=== PATIENT | male | born 1995 | race Caucasian/White ===

== ENCOUNTER 2018-04-07 23:01 | Emergency (ER) | payer OTHER ==
[2018-04-07 23:41] LABS: URINE APPEARANCE CLEAR; URINE BILIRUBIN NEGATIVE (NEGATIVE); URINE BLOOD NEGATIVE (NEGATIVE); URINE COLOR YELLOW; URINE GLUCOSE (UA) NEGATIVE (NEGATIVE); URINE KETONE NEGATIVE (NEGATIVE); URINE LEUKOCYTE ESTERASE NEGATIVE (NEGATIVE); URINE NITRITE NEGATIVE (NEGATIVE); URINE PROTEIN NEGATIVE (NEGATIVE); URINE UROBILINOGEN 0.2 E.U./dL (0.20 - 1.00)
[2018-04-07 23:43] LABS: BASO % 0.1 % (0-6); EOS % 1.8 % (0-6); GRAN % 54.6 % (47-80); HEMATOCRIT 45.2 % (42.0-52.0); HEMOGLOBIN 15.4 gm/dl (14.0-18.0); LYMPH % 35.5 % (16-45); MEAN CELL VOLUME 88.1 fl (81-97); MEAN CORPUSCULAR HGB CONC 34.1 g/dl (32-36); PLATELET COUNT 284 K/uL (130-400); RED BLOOD COUNT 5.13 M/uL (4.40-5.70); WHITE BLOOD COUNT W/O DIFF 7.2 K/uL (4.2-12.2)
[2018-04-07 23:51] LABS: BLOOD UREA NITROGEN 14 mg/dL (6-20); EST GLOMERULAR FILTRATION RATE > 60 mL/min
[2018-04-07 23:54] LABS: GLUCOSE,RANDOM 83 mg/dL (74-109)
--- NOTE | 2018-04-08 00:33 | Emergency Department Record ---
History of Present Illness - General Chief Complaint: Abdominal Pain Stated Complaint: ABDOMINAL PAIN Time Seen by Provider: 04/07/18 23:27 Source: Patient Mode of Arrival: Ambulatory Limitations: No limitations - History of Present Illness Initial Comments: pt has been having lower abd pain for a week. he has dysuria at times MD Complaint: Abdominal pain Onset/Timin -: Days(s) Location: Suprapubic, LLQ, RLQ Radiation: Other Migration to: No migration Severity: Moderate Severity scale (1-10): 7 Quality: Burning, Sharp Consistency: Constant, Intermittent Improves With: Nothing Worsens With: Medication, Other Associated Symptoms: Nausea - Related Data Home Medications Medication Instructions Recorded Confirmed Last Taken No Home Med [NO HOME MEDS] 04/07/18 04/07/18 Unknown Allergies Allergy/AdvReac Type Severity Reaction Status Date / Time No Known Drug Allergies Allergy Verified 04/07/18 23:21 Travel Screening - Travel/Exposure Within Last 30 Days Have you traveled within the last 30 days?: No - Travel/Exposure Within Last Year Have you traveled outside the [place] in the last year?: No - Additonal Travel Details Have you been exposed to anyone with a communicable illness?: No - Travel Symptoms Symptom Screening: None Review of Systems Reviewed: No additional complaints except as noted below Constitutional: Reports: As per HPI. Denies: Chills, Fever, Malaise, Night sweats, Weakness, Weight change Eyes: Reports: As per HPI. Denies: Eye discharge, Eye pain, Photophobia, Vision change ENT: Reports: As per HPI. Denies: Congestion, Dental pain, Ear pain, Epistaxis , Hearing loss, Throat pain Respiratory: Reports: As per HPI. Denies: Cough, Dyspnea, Hemoptysis, Stridor, Wheezes Cardiovascular: Reports: As per HPI. Denies: Arrhythmia, Chest pain, Dyspnea on exertion, Edema, Murmurs, Orthopnea, Palpitations, Paroxysmal nocturnal dyspnea, Rheumatic Fever, Syncope Endocrine: Reports: As per HPI. Denies: Fatigue, Heat or cold intolerance, Polydipsia, Polyuria Gastrointestinal: Reports: As per HPI. Denies: Abdominal pain, Constipation, Diarrhea, Hematemesis, Hematochezia, Melena, Nausea, Vomiting Genitourinary: Reports: As per HPI. Denies: Dysuria, Frequency, Hematuria, Incontinence, Retention, Testicular pain, Testicular mass, Urgency Musculoskeletal: Reports: As per HPI. Denies: Arthralgia, Back pain, Gout, Joint swelling, Myalgia, Neck pain Skin: Reports: As per HPI. Denies: Bruising, Change in color, Change in hair/ nails, Lesions, Pruritus, Rash Neurological: Reports: As per HPI. Denies: Abnormal gait, Confusion, Headache, Numbness, Paresthesias, Seizure, Tingling, Tremors, Vertigo, Weakness Psychiatric: Reports: As per HPI. Denies: Anxiety, Auditory hallucinations, Depression, Homicidal thoughts, Suicidal thoughts, Visual hallucinations Hematological/Lymphatic: Reports: As per HPI. Denies: Anemia, Blood Clots, Easy bleeding, Easy bruising, Swollen glands Past Medical History - SOCIAL HISTORY Smoking Status: Never smoker Alcohol Use: Occasional Drug Use: Heavy Drug Use Detail:: Marijuana - RESPIRATORY Hx Respiratory Disorders: No - CARDIOVASCULAR Hx Cardio Disorders: No - NEURO Hx Neuro Disorders: No - GI Hx GI Disorders: No - Hx Genitourinary Disorders: No - ENDOCRINE Hx Endocrine Disorders: No - MUSCULOSKELETAL Hx Musculoskeletal Disorders: No - PSYCH Hx Psych Problems: No - HEMATOLOGY/ONCOLOGY Hx Hematology/Oncology Disorders: No Family Medical History Any Significant Family History?: No Physical Exam - General General Appearance: Alert, Oriented x3, Cooperative, Mild distress - Head Head exam: Normal inspection - Eye Eye exam: Normal appearance, PERRL, EOMI Pupils: Normal accommodation - ENT ENT exam: Normal exam, Mucous membranes moist, Normal external ear exam, Normal orophraynx Ear exam: Normal external inspection. negative: External canal tenderness Nasal Exam: Normal inspection. negative: Discharge, Sinus tenderness Mouth exam: Normal external inspection, Tongue normal Teeth exam: Normal inspection. negative: Dental caries Throat exam: Normal inspection. negative: Tonsillar erythema, Tonsillar exudate - Neck Neck exam: Normal inspection, Full ROM. negative: Tenderness - Respiratory Respiratory exam: Normal lung sounds bilaterally. negative: Respiratory distress - Cardiovascular Cardiovascular Exam: Regular rate, Normal rhythm, Normal heart sounds - GI/Abdominal GI/Abdominal exam: Soft, Normal bowel sounds, Tenderness - Rectal Rectal exam: Deferred - exam: Circumcision, Normal inspection. negative: Testicular tenderness, Urethral discharge - Extremities Extremities exam: Normal inspection, Full ROM, Normal capillary refill. negative: Tenderness - Back Back exam: Reports: Normal inspection, Full ROM. Denies: Muscle spasm, Rash noted, Tenderness - Neurological Neurological exam: Alert, CN II-XII intact, Normal gait, Oriented X3 - Psychiatric Psychiatric exam: Normal affect, Normal mood - Skin Skin exam: Dry, Intact, Normal color, Warm Course Vital Signs 04/07/18 23:16 Temperature 98 F Pulse Rate [ 62 Pulse Ox Probe] Respiratory 16 Rate Blood Pressure 145/81 [Left Arm] Pulse Ox 97 - Reevaluation(s) Reevaluation #1: 04/08/18 01:31 pt feels better Medical Decision Making - Lab Data Result diagrams: 04/07/18 23:00 04/07/18 23:00 Lab Results 04/07/18 04/07/18 04/07/18 Range/Units 23:00 23:00 23:33 WBC 7.2 (4.2-12.2) K/uL RBC 5.13 (4.40-5.70) M/uL Hgb 15.4 (14.0-18.0) gm/dl Hct 45.2 (42.0-52.0) % MCV 88.1 (81-97) fl MCH 30.0 (27-33) pg MCHC 34.1 (32-36) g/dl RDW 12.0 (11.5-14.5) % Plt Count 284 (130-400) K/uL MPV 9.0 (7.4-10.4) fl Gran % 54.6 (47-80) % Lymphocytes % 35.5 (16-45) % Monocytes % 8.0 (0-9) % Eosinophils % 1.8 (0-6) % Basophils % 0.1 (0-6) % Sodium 142 (136-145) mmol/L Potassium 3.1 L (3.4-4.5) mmol/L Chloride 99 (98-107) mmol/L Carbon Dioxide 30.0 H (22-29) mmol/L Anion Gap 13.0 (7-16) BUN 14 (6-20) mg/dL Creatinine 1.0 (0.7-1.2) mg/dL Estimated GFR > 60 mL/min Random Glucose 83 (74-109) mg/dL Calcium 9.6 (8.6-10.0) mg/dL Urine Color Yellow Urine Appearance Clear Urine pH 6.0 (5.0-8.0) Ur Specific [place] 1.025 (1.002-1.030) Urine Protein Negative (NEGATIVE) Urine Glucose (UA) Negative (NEGATIVE) Urine Ketones Negative (NEGATIVE) Urine Blood Negative (NEGATIVE) Urine Nitrite Negative (NEGATIVE) Urine Bilirubin Negative (NEGATIVE) Urine Urobilinogen 0.2 (0.20 - 1.00) E.U./dL Ur Leukocyte Esterase Negative (NEGATIVE) Disposition Disposition: Discharge Clinical Impression: Renal colic Abdominal pain Qualifiers: Abdominal location: lower abdomen, unspecified Qualified Code(s): R10.30 - Lower abdominal pain, unspecified Disposition: Home, Self-Care Condition: (1) Good Instructions: Abdominal Pain (ED), Renal Colic (ED) Additional Instructions: follow up with familly doctor. return sooner if worse Forms: Patient Portal Access Quality - Quality Measures Quality Measures: N/A - Blood Pressure Screening Does Patient Have Any of the Following: No Blood Pressure Classification: Pre-Hypertensive BP Reading Systolic Measurement: 121 Diastolic Measurement: 69 Screening for High Blood Pressure: < Pre-Hypertensive BP, F/U Documented > [ [id number]] Pre-Hypertensive Follow-up Interventions: Follow-up with rescreen every year.
[2018-04-08] MEDS ORDERED: POTASSIUM CHLORIDE 20 MEQ TABLET PO ONE (01:28)
--- NOTE | 2018-04-10 07:29 | CT SCAN REPORT ---
DATE: 04/08/2018 at 12:04 a.m. EXAM: EMERGENCY CT OF THE ABDOMEN AND PELVIS WITHOUT CONTRAST. HISTORY: Lower abdominal and pelvic pain beginning about seven days ago with left flank pain. TECHNIQUE: Axial CT scan of the abdomen and pelvis was performed without oral or intravenous contrast at the referring physician's request. Preliminary report provided by [facility]. COMPARISON: None. FINDINGS: No calcified gallstones are seen within the gallbladder. No intrarenal calculi seen on either side. There is minimal prominence of the left renal pelvis compared to the right, but no definite hydroureter is seen on either side. As such, it is very difficult to follow the entire course of both ureters in their nondilated state throughout the retroperitoneum and pelvis. There are some small pelvic calcifications present bilaterally. These are probably just phleboliths with no definite ureteral calculi seen an no bladder calculus evident. The patient has a thin body habitus with relatively little retroperitoneal or mesenteric adipose tissue to act as a natural contrast agent. This, in conjunction with the lack of oral and intravenous contrast, considerably limits the evaluation of the bowel and viscera. Given these limitations, no definite hepatic, splenic, adrenal, pancreatic, or renal mass identified. I believe at least a portion of the appendix is visualized and as seen appears of normal caliber containing some air with no definite appendicitis identified. There is a tiny nodule in the left lower lobe approximately 3.7 mm in size and a tiny nodule in the right lower lobe approximately 4.6 mm in size. These are nonspecific. Assuming the patient is at low risk for malignancy, follow-up chest CT in a year's time would be suggested to follow these. If the patient is at high risk for malignancy, follow-up chest CT in six months' time would be suggested. No free intraperitoneal air or free intraperitoneal fluid identified. Report of the bibasilar pulmonary nodules was discussed by myself with Dr. Butler of the [facility] at the time of dictation at approximately 11:21 a.m. on 04/08/2018 at phone number [phone]. IMPRESSION: 1. NO DEFINITE URINARY TRACT CALCULI IDENTIFIED. SLIGHT PROMINENCE OF THE LEFT RENAL PELVIS COMPARED TO THE RIGHT MAY BE OF NO CLINICAL SIGNIFICANCE. 2. NO APPENDICITIS IDENTIFIED. NO FREE AIR OR FREE FLUID SEEN. 3. SINGLE BIBASILAR PULMONARY NODULES, THE LARGEST ABOUT 4.6 MM ON THE RIGHT. FOLLOWUP DESCRIBED ABOVE SUGGESTED. JOB NUMBER: [id number] MTDD
== END 2018-04-08 01:44 | disposition home or self-care (01) ==
LOC: ER 23:01
DX: N23 Unspecified renal colic (principal); R30.0 Dysuria; R10.30 Lower abdominal pain, unspecified; R11.0 Nausea; J84.10 Pulmonary fibrosis, unspecified
CPT/HCPCS: 74176; 80048; 81003; 85025; 99283; 99284